=== PATIENT | male | born 1980 | race Caucasian/White ===

== ENCOUNTER 2019-10-20 16:53 | Emergency (ER) | payer MEDICAID, SELFPAY ==
[2019-10-20 16:56] VITALS: BP 142/101; PULSE 112; RESP 24; TEMP 36.2; O2SAT 98; BMI 24.0
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
[2019-10-20 17:02] VITALS: O2SAT 97
[2019-10-20] MEDS: fentaNYL 100 MCG/2 ML Ampul 50 MCG IV ×2 (17:06→20:38)
[2019-10-20] MEDS: Diphth,Pertuss(Acell),Tet Vac 0.5 ML Vial IM (17:07)
--- NOTE | 2019-10-20 17:13 | ED.RN ---
CALLED AND LEFT MESSAGE FOR PTS MOTHER BRINA PER PT REQUEST [phone]
--- NOTE | 2019-10-20 18:24 | ED.RN ---
[facility] 75 MIN ETA.
[2019-10-20 18:38] VITALS: BP 136/93; PULSE 92; RESP 12; O2SAT 95
[2019-10-20 19:00] VITALS: BP 139/101; PULSE 88; RESP 15; O2SAT 97
[2019-10-20 20:00] VITALS: BP 135/96; PULSE 93; RESP 17; O2SAT 95
== END 2019-10-20 20:50 | disposition short-term general hospital (02) ==
PROVIDERS: Emergency Provider Emergency Medicine
DX: S01.81XA Laceration without foreign body of other part of head, initial encounter (principal); F10.129 Alcohol abuse with intoxication, unspecified; Z23 Encounter for immunization; W26.8XXA Contact with other sharp object(s), not elsewhere classified, initial encounter; Y93.15 Activity, underwater diving and snorkeling; Y92.89 Other specified places as the place of occurrence of the external cause; Y99.8 Other external cause status
CPT/HCPCS: 70450; 72125; 90715; 96374; 96376; 99285; A4216